=== PATIENT | female | born 1960 | race Caucasian/White ===

== ENCOUNTER 2017-08-18 10:52 | Day surgery (SDC) | payer MEDICAID ==
[~2017-08-18] VITALS: Ht 154.9 cm; Wt 70.0 kg
[~2017-08-18 10:52] MED LIST: ATOR40TA28 PO; CALC-1009 PO; FOLI-97 PO; HYDR25TA PO
[2017-08-18] MEDS ORDERED: PROPOFOL 1% 20 ML VIAL IVP ONE (10:53)
[2017-08-18] MEDS ORDERED: SODIUM CHLORIDE 0.9% 1,000 ML IV ONE ×2 (11:08→11:30)
== END 2017-08-18 14:35 | disposition home or self-care (01) ==
LOC: SURGERY 10:52
PROVIDERS: ATTEND Internal Medicine Gastroenterology
DX: K29.70 Gastritis, unspecified, without bleeding (principal); K22.10 Ulcer of esophagus without bleeding; K29.80 Duodenitis without bleeding; K44.9 Diaphragmatic hernia without obstruction or gangrene; K21.9 Gastro-esophageal reflux disease without esophagitis; I10 Essential (primary) hypertension; E78.00 Pure hypercholesterolemia, unspecified; M54.9 Dorsalgia, unspecified; E66.3 Overweight; G89.29 Other chronic pain; M54.5 Low back pain; Z98.51 Tubal ligation status; Z80.0 Family history of malignant neoplasm of digestive organs
CPT/HCPCS: 43239; 88305; 88312; 88313; J2704; J7030